=== PATIENT | male | born 1960 | race Caucasian/White ===

== ENCOUNTER 2019-05-14 09:24 | Inpatient (IN) ==
[2019-05-14] MEDS ORDERED: Albuterol 2.5 MG/3 ML NEBULIZER IH PRN ×3 (09:40→18:19)
[2019-05-14] MEDS ORDERED: CeFAZolin Syr 2,000MG/20 ML 2,000 MG/20 ML SYRINGE IVPB ONE (09:40)
[2019-05-14] MEDS ORDERED: Ringers Solution, Lactated 1,000 ML IVC SCH (09:45)
[2019-05-14] MEDS ORDERED: *HR* Promethazine 25 MG/ML VIAL IVP PRN (09:56)
[2019-05-14] MEDS ORDERED: *HR* OxyCODONE Immed Rel 5 MG TABLET PO PRN (09:56)
[2019-05-14] MEDS ORDERED: Ondansetron 4 MG/2 ML VIAL IVP ONE (09:56)
[2019-05-14] MEDS ORDERED: Famotidine 20 MG/2 ML VIAL IVP ONE (09:56)
[2019-05-14] MEDS ORDERED: Acetaminophen IV 1,000 MG/100 ML INFUS..BTL IVPB ONE (09:56)
[2019-05-14] MEDS ORDERED: *HR* Labetalol 20 MG/4 ML SYRINGE IVP PRN (09:56)
[2019-05-14] MEDS ORDERED: *HR* HYDROmorphone (PF) 1 MG/ML SYRINGE IVP PRN (09:56)
[2019-05-14] MEDS ORDERED: Gabapentin 300 MG CAPSULE PO ONE (09:56)
[2019-05-14] MEDS ORDERED: *HR* FentaNYL (PF) 100 MCG/2 ML VIAL ONE ×3 (10:08→13:52)
[2019-05-14] MEDS ORDERED: *HR* Propofol 200 MG/20 ML VIAL IVP ONE (10:08)
[2019-05-14] MEDS ORDERED: *HR* Midazolam HCl 2 MG/2 ML VIAL ONE (10:08)
[2019-05-14] MEDS ORDERED: *HR* Rocuronium Bromide 50 MG/5 ML VIAL ONE ×2 (10:09→12:06)
[2019-05-14] MEDS ORDERED: Dexamethasone 4 MG/ML VIAL ONE (10:09)
[2019-05-14] MEDS ORDERED: *HR* Succinylcholine 200 MG/10 ML VIAL IVP ONE (10:09)
[2019-05-14] MEDS ORDERED: Lidocaine HCL 4 ML Topical Solution (Laryng-O-Jet Kit Sterile Pak) TP ONE (10:09)
[2019-05-14] MEDS ORDERED: Ondansetron 4 MG/2 ML VIAL ONE (10:09)
[2019-05-14] MEDS ORDERED: Lidocaine -MPF 2% 2 ML VIAL ONE (10:09)
[2019-05-14] MEDS ORDERED: Bupivacaine/EPI 1:200k 0.25%PF 10 ML VIAL INFILT ONE (10:50)
[2019-05-14] MEDS ORDERED: Isovue-300 50ML VIAL ONE (10:59)
[2019-05-14] MEDS ORDERED: *HR* PHENYLEPHRINE 1,000 MCG/10 ML SYRINGE IVP ONE (11:22)
[2019-05-14] MEDS ORDERED: *HR* HYDROMORPHONE 2 MG/ML VIAL ONE (12:10)
[2019-05-14] MEDS ORDERED: Esmolol 100 MG/10 ML VIAL IVP ONE (12:22)
[2019-05-14] MEDS ORDERED: Neostigmine Methylsulfate 3 MG/3 ML SYRINGE ONE (13:36)
[2019-05-14] MEDS ORDERED: Nicotine 21 MG PATCH.TD24 TD SCH (16:30)
[2019-05-14] MEDS ORDERED: *HR* FentaNYL (PF) 100 MCG/2 ML VIAL IVP PRN (18:19)
[2019-05-14] MEDS ORDERED: *HR* Belladonna Alkaloids/Opium 30 MG RECTAL SUPPOSITORY RC PRN (18:19)
[2019-05-14] MEDS ORDERED: Ondansetron 4 MG/2 ML VIAL IVP PRN (18:19)
[2019-05-14] MEDS ORDERED: Naloxone 0.4 MG/ML INJ IVP PRN (18:19)
[2019-05-14] MEDS: 0.9 % Sodium Chloride 1,000 ML IVC SCH (21:15)
[2019-05-14] MEDS: ceFAZolin 2,000 MG in 0.9 % Sodium Chloride 100 ML IVPB SCH (22:10)
[2019-05-14] MEDS: Acetaminophen IV 1,000 MG/100 ML INFUS..BTL IVPB SCH (22:11)
[2019-05-15] MEDS: Acetaminophen IV 1,000 MG/100 ML INFUS..BTL IVPB SCH ×3 (02:47→15:12)
[2019-05-15 05:30] LABS: Basophils % 0.1 %; Hematocrit 39.4 % (37.5-50.1); Immature Granulocytes % 0.4 % (0-4); Lymphocytes # 2.2 K/mcL (0.6-4.6); Lymphocytes % 17.9 %; Mean Corpuscular HGB Conc 33.8 g/dL (31.6-35.5); Mean Corpuscular Hemoglobin 31.4 pg (28.0-33.3); Mean Corpuscular Volume 93.1 fL (83.0-100.0); Mean Platelet Volume 11.7 fL (9.4-12.4); Monocytes # 1.1 K/mcL (0.0-1.3); Monocytes % 8.6 %; Neutrophils # 9.1 K/mcL (1.6-8.9); Platelet Count 190 K/mcL (140-400); Red Blood Count 4.23 M/mcL (4.19-5.50); Red Cell Distribution Width 13.6 % (11.5-14.5); White Blood Count 12.5 K/mcL (4.3-11.1)
[2019-05-15 05:31] LABS: Hemoglobin 13.3 g/dL (12.9-16.9)
[2019-05-15 05:55] LABS: BUN/Creatinine Ratio 11 (6-26); Blood Urea Nitrogen 15 mg/dL (6-20); Calcium 8.2 mg/dL (8.6-10.3); Carbon Dioxide 24 mEq/L (23-29); Chloride 104 mEq/L (98-107); Glucose 119 mg/dL (70-105); Osmolality,Calculated 290 (280-300); Potassium 3.8 mEq/L (3.5-5.1); Sodium 139 mEq/L (136-145); eGFR For African Americans > 60 (> 60); eGFR For Non-African Americans 52 (> 60)
[2019-05-15] MEDS: ceFAZolin 2,000 MG in 0.9 % Sodium Chloride 100 ML IVPB SCH (07:48)
[2019-05-15] MEDS: 0.9 % Sodium Chloride 1,000 ML IVC SCH (10:29)
[2019-05-15 14:31] VITALS: BP 122/82
== END 2019-05-15 17:40 | disposition home or self-care (01) | DRG 658 ==
LOC: SAMDAY 09:24 → 3ANU 16:02
PROVIDERS: ADMIT Urology; ATTEND Urology